=== PATIENT | female | born 1980 | race Caucasian/White ===

== ENCOUNTER 2018-03-17 20:14 | Emergency (ER) | payer OTHER ==
[~2018-03-17] VITALS: Ht 170.2 cm; Wt 72.6 kg
[2018-03-17] MEDS ORDERED: ZPAK (20:22)
[2018-03-17] MEDS ORDERED: BIRTHCONTROL (20:23)
[2018-03-17 21:05] LABS: URINE BILIRUBIN NEGATIVE (Negative); URINE BLOOD NEGATIVE (Negative); URINE CLARITY CLEAR; URINE COLOR YELLOW; URINE GLUCOSE-RANDOM NEGATIVE (Negative); URINE KETONES NEGATIVE (Negative); URINE LEUKOCYTES-REFLEX NEGATIVE (Negative); URINE NITRITE-REFLEX NEGATIVE (Negative); URINE PROTEIN NEGATIVE (Negative); URINE SPECIFIC GRAVITY >= 1.030 (1.005-1.030); URINE UROBILINOGEN 0.2 E.U./dl (0.2-1.0)
[2018-03-17] MEDS ORDERED: NORCO 5-325 TA1 EACH PO (21:24)
[2018-03-17 21:40] VITALS: BP 122/73
== END 2018-03-17 21:40 | disposition home or self-care (01) ==
LOC: M.ERS 20:14
PROVIDERS: Emergency Medicine
DX: R07.81 Pleurodynia (principal)

== ENCOUNTER 2020-02-16 10:08 | Emergency (ER) | payer OTHER ==
[~2020-02-16] VITALS: Ht 170.2 cm; Wt 67.1 kg
[~2020-02-16 10:08] MED LIST: BIRTHCONTROL; NORCO 5-325 TA1 EACH PO; ZPAK
[2020-02-16] MEDS ORDERED: LEXAPRO 10 MG T10 M1 PO (10:16)
[2020-02-16] MEDS ORDERED: VITAMIN D (10:16)
[2020-02-16] MEDS ORDERED: TAMOXIFEN (10:33)
[2020-02-16] MEDS ORDERED: ZOLADEX3.6 MG/1 S SUBQ (10:34)
[2020-02-16] MEDS ORDERED: PERCOCET 5-3251 EACH PO (10:38)
[2020-02-16] MEDS ORDERED: FLEXERIL PO (10:38)
[2020-02-16 11:13] VITALS: BP 132/80
== END 2020-02-16 11:13 | disposition home or self-care (01) ==
LOC: M.ERS 10:08
DX: S42.032A Displaced fracture of lateral end of left clavicle, initial encounter for closed fracture (principal); Z85.3 Personal history of malignant neoplasm of breast; V29.9XXA Motorcycle rider (driver) (passenger) injured in unspecified traffic accident, initial encounter; Y93.89 Activity, other specified; Y92.89 Other specified places as the place of occurrence of the external cause; Y99.8 Other external cause status

== ENCOUNTER → 2020-05-14 | Outpatient (CLI) | payer OTHER ==
[~2020-05-14] MED LIST changes: +ESCITALOPRAM OX10 MG PO; +FLEXERIL PO; +LEXAPRO 10 MG T10 M1 PO; +MELATONIN5 MG SUBLING; +NOLVADEX20 MG PO; +PERCOCET 5-3251 EACH PO; +TAMOXIFEN; +VITAMIN D; +VITAMIN D325 MC5 PO; +ZOLADEX3.6 MG/1 S SUBQ
== END ==
LOC: M.LAB 14:37
PROVIDERS: ATTEND Orthopaedic Surgery
DX: Z01.812 Encounter for preprocedural laboratory examination (principal); Z20.828 Contact with and (suspected) exposure to other viral communicable diseases

== ENCOUNTER → 2020-05-20 | Day surgery (SDC) | payer OTHER ==
[~2020-05-20] MED LIST changes: +OXYCODONE HCL 55 MG PO
[2020-05-20 06:41] LABS: ABSOLUTE EOSINOPHILS 0.2 thou/uL (0.0-0.7); ABSOLUTE LYMPHOCYTES 1.5 thou/uL (0.8-5.3); ABSOLUTE MONOCYTES 0.4 thou/uL (0.0-1.2); ABSOLUTE NEUTROPHILS 1.5 thou/uL (1.6-8.1); BASOPHILS 0.8 %; EOSINOPHILS 5.4 %; HEMATOCRIT 40.7 % (37.0-47.0); HEMOGLOBIN 13.6 gm/dL (12.0-15.0); LYMPHOCYTES 41.8 %; MCH 31.2 pg (26.0-34.0); MCHC 33.4 g/dL (28.0-37.0); MCV 93.2 fL (80.0-100.0); MONOCYTES 10.3 %; MPV 7.2 fl. (7.2-11.1); NUCLEATED RBCS 0 /100WBC; PLATELET COUNT* 192 thou/uL (150-400); POLYS 41.7 %; RBC 4.37 mil/uL (4.20-5.00); RDW-CV 13.2 % (10.5-14.5); WBC 3.5 thou/uL (4.0-11.0)
--- NOTE | 2020-05-27 11:07 | OP ---
[address] [address] OPERATIVE REPORT Name: DRE HARPER Room: [facility]..#: [id number] Admission: 05/20/20 Attend Phys: Emanuel Newton DO Discharge: Date of : 84 Report #: [id number] THIS REPORT FOR: cc: Alta Saucedo MD, Cassandra MD ~ Emanuel Newton DO DICTATED BY: Claude Espinoza DO DATE OF SERVICE: 05/20/2020 PREOPERATIVE DIAGNOSIS: Comminuted displaced distal left clavicle fracture. POSTOPERATIVE DIAGNOSIS: Comminuted displaced distal left clavicle fracture. PROCEDURE PERFORMED: Open reduction and internal fixation of left distal clavicle fracture with bone graft. SURGEON: Emanuel Newton DO ASSISTANTS: Cluade Espinoza DO and Karri Ngo DO ANESTHESIA: General with regional nerve block. ESTIMATED BLOOD LOSS: 10 mL. ANTIBIOTICS: 2 g Ancef IV preoperatively. COMPLICATIONS: None. SPECIMENS: None. CONDITION: The patient is stable to PACU. INDICATIONS FOR PROCEDURE: This is a pleasant 39-year-old female ,who unfortunately had a fall in 01/2020 resulting in a left distal clavicle fracture. She has been seen and examined in the outpatient orthopedic clinic. Treatment options were discussed in detail with the patient including operative and nonoperative intervention. Initially, the patient did wish to proceed with nonoperative treatment. Followup radiographs at 3 months demonstrate no significant healing with residual displacement of the fracture site. The patient was also complaining of pain and weakness in the left shoulder. Open reduction and internal fixation was discussed in detail with the patient including the risks, benefits, alternatives and complications. The patient [place] [address] OPERATIVE REPORT Name: DRE HARPER Room: [facility].#: [id number] Admission: 05/20/20 Attend Phys: Emanuel Newton DO Discharge: Date of : 84 Report #: [id number] DESCRIPTION OF PROCEDURE: The patient was seen and examined in the preoperative holding area. The correct operative extremity was marked. Written consent was obtained. The patient was transferred to the operating room and placed supine on the operating table. She was given the benefit of general anesthesia. She was then placed in the beach chair position. All extremities were well padded and the head was well secured and padded. The left upper extremity was then prepped and draped in usual sterile fashion. Timeout was performed to verify the correct patient, procedure and operative extremity and all were in agreement. Prior to incision, fluoroscopic radiographs were obtained, which confirmed location of the displaced distal clavicle fracture. Incision was then made centered over the distal clavicle extending laterally out to the acromioclavicular joint. Sharp dissection was carried down to the subcutaneous layer as well as fascia. The platysma was incised longitudinally in line with the clavicle. The fracture site was then identified and debrided of all callus formation. There was some fibrous tissue at the fracture site given that this was 3 months old. The fracture was able to be reduced with direct reduction techniques utilizing a aobma-sd-jsohb clamp. K-wire was then placed for temporary fixation. The clavicle was noted to reduce nicely; however, there was some bone loss noted anteriorly. Next, a [place] distal clavicle plate was then placed and temporarily pinned into position with all of wire fixation. Fluoroscopic images were obtained to confirm appropriate reduction and appropriate plate placement. The plate was drilled laterally and medially and filled with appropriate sized screws. Four locking screws were placed laterally in the distal clavicle fracture followed by 3 cortical screws medially in the shaft. There was noted to be some bone loss anteriorly and 2.5 mL of Wanda Vitoss bone graft was then placed. The wound was thoroughly irrigated. The fluoroscopy was then used to take final images, which confirmed appropriate reduction of the clavicle fracture as well as appropriate placement of the distal clavicle plate with no signs of complication. Again, the wound was thoroughly irrigated. The fascial layer was closed with a #1 Vicryl in interrupted buqomy-gt-bxadr fashion. A 2-0 Vicryl was used subcutaneously followed by 3-0 Stratafix and skin glue. Sterile dressing was applied. The patient was then awakened from anesthesia and transferred to the PACU in stable condition. The patient tolerated the procedure well. There were no complications. <ELECTRONICALLY SIGNED> By: Emanuel Newton DO 05/27/20 [id number] Newton DO /melissa
== END | disposition home or self-care (01) ==
LOC: M.SUR 06:14
PROVIDERS: ATTEND Orthopaedic Surgery
DX: S42.032A Displaced fracture of lateral end of left clavicle, initial encounter for closed fracture (principal); M25.512 Pain in left shoulder; Z98.890 Other specified postprocedural states; Z79.899 Other long term (current) drug therapy; Z85.3 Personal history of malignant neoplasm of breast; W19.XXXA Unspecified fall, initial encounter; Y93.89 Activity, other specified; Y92.89 Other specified places as the place of occurrence of the external cause; Y99.8 Other external cause status